=== PATIENT | female | born 1975 | race Caucasian/White ===

== ENCOUNTER 2018-03-02 16:54 | Emergency (ER) | payer OTHER ==
[~2018-03-02] VITALS: Ht 157.5 cm; Wt 64.5 kg
[2018-03-02 16:59] VITALS: Ht 157.5 cm; Wt 64.5 kg
[2018-03-02] MEDS ORDERED: VENTOLIN HFA18 GM INH (18:06)
[2018-03-02] MEDS ORDERED: ZPAK PO (18:06)
[2018-03-02 18:25] VITALS: BP 116/64
== END 2018-03-02 18:26 | disposition home or self-care (01) ==
LOC: D.ER 16:54
DX: J06.9 Acute upper respiratory infection, unspecified (principal); R09.89 Other specified symptoms and signs involving the circulatory and respiratory systems; F17.200 Nicotine dependence, unspecified, uncomplicated

== ENCOUNTER → 2019-02-28 08:11 | Outpatient (CLI) | payer OTHER ==
[2018-03-02 16:59] VITALS: BMI 26.0
[~2019-02-28 08:11] MED LIST: VENTOLIN HFA18 GM INH; ZPAK PO
== END | disposition home or self-care (01) ==
LOC: D.MAMMO 08:11
PROVIDERS: ATTEND Family Medicine
DX: Z12.31 Encounter for screening mammogram for malignant neoplasm of breast (principal); M54.5 Low back pain

== ENCOUNTER 2019-05-29 16:42 | Emergency (ER) | payer OTHER ==
[~2019-05-29] VITALS: Ht 157.5 cm; Wt 86.4 kg
[2019-05-29 16:56] VITALS: Ht 157.5 cm; Wt 86.4 kg
[2019-05-29 18:43] VITALS: BP 124/76
== END 2019-05-29 18:43 | disposition home or self-care (01) ==
LOC: D.ER 16:42
DX: M76.812 Anterior tibial syndrome, left leg (principal); J45.909 Unspecified asthma, uncomplicated